=== PATIENT | male | born 1970 | race Caucasian/White ===

== ENCOUNTER 2019-09-04 11:19 | Emergency (ER) | payer BC ==
[2019-09-04 12:13] VITALS: BP 114/68
--- NOTE | 2019-09-04 12:38 | UC ---
Respiratory Complaint HPI - HPI Summary HPI Summary: 1. had a sty left upper eye lid that he poked at and then awake with red injected eye with clear drainage 2. 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 - History of Current Complaint Chief Complaint: UCRespiratory Stated Complaint: FEVER,CHILLS,EYE COMPLAINT Time Seen by Provider: 09/04/19 12:02 Hx Obtained From: Patient Onset/Duration: Gradual Onset, Lasting Days Timing: Constant Pain Intensity: 0 Character: Cough: Productive Aggravating Factors: Deep Breaths, Recumbent Position Alleviating Factors: Nothing Associated Signs And Symptoms: Positive: Fever, Pleuritic Chest Pain, URI, Nasal Congestion - Allergies/Home Medications Allergies/Adverse Reactions: Allergies Allergy/AdvReac Type Severity Reaction Status Date / Time environmental Allergy Congestion Uncoded 09/04/19 11:59 Home Medications: Home Medications Acetaminophen [Non-Aspirin] 650 mg PO DAILY PRN 09/04/19 [History Confirmed 01/18] Escitalopram * [Lexapro 10 mg (NF)] 10 mg PO DAILY 09/04/19 [History Confirmed 09/04/19] Fluticasone NASAL SPRAY 50MCG* [Flonase NASAL SPRAY 50MCG*] 1 spray BOTH NARES DAILY 09/04/19 [History Confirmed 09/04/19] PMH/Surg Hx/FS Hx/Imm Hx Previously Healthy: No Respiratory History: Asthma - Surgical History Surgical History: Yes Surgery Procedure, Year, and Place: facial cysts - Family History Known Family History: Positive: None - Social History Lives: With Family Alcohol Use: Occasionally Substance Use Type: None Smoking Status (MU): Former Smoker Review of Systems All Other Systems Reviewed And Are Negative: Yes Constitutional: Positive: Fever, Chills, Fatigue Skin: Positive: Negative Eyes: Positive: Drainage, Eye Redness ENT: Positive: Sore Throat, Ear Ache, Nasal Discharge, Sinus Congestion Respiratory: Positive: Cough Cardiovascular: Positive: Negative Gastrointestinal: Positive: Negative Genitourinary: Positive: Negative Motor: Positive: Negative Neurovascular: Positive: Negative Musculoskeletal: Positive: Negative Neurological: Positive: Negative Psychological: Positive: Negative Is Patient Immunocompromised?: No Physical Exam Triage Information Reviewed: Yes Appearance: Well-Appearing, No Pain Distress, Well-Nourished Vital Signs: Initial Vital Signs Temp 99.9 F 09/04/19 12:03 Pulse 80 09/04/19 12:03 Resp 18 09/04/19 12:03 BP 114/68 09/04/19 12:03 Pulse Ox 98 09/04/19 12:03 Vital Signs Reviewed: Yes Eye Exam: Normal Eyes: Positive: Conjunctiva Clear - r, Conjunctiva Inflamed - l, Discharge - l ENT Exam: Normal ENT: Positive: Normal ENT inspection, Hearing grossly normal, Pharynx normal, Pharyngeal erythema, TMs normal, Sinus tenderness, Uvula midline. Negative: Nasal congestion, Tonsillar swelling, Trismus, Muffled voice, Hoarse voice, Dental tenderness Dental Exam: Normal Neck exam: Normal Neck: Positive: Supple, Nontender, No Lymphadenopathy Respiratory Exam: Normal Respiratory: Positive: Chest non-tender, Lungs clear, Normal breath sounds, No respiratory distress, No accessory muscle use Cardiovascular Exam: Normal Cardiovascular: Positive: RRR, No Murmur, Pulses Normal, Brisk Capillary Refill Musculoskeletal Exam: Normal Musculoskeletal: Positive: Strength Intact, ROM Intact, No Edema Neurological Exam: Normal Neurological: Positive: Alert, Muscle Tone Normal Psychological Exam: Normal Skin Exam: Normal Respiratory Course/Dx - Course Course Of Treatment: cipro eye drops as he has already tried his son e-mycin drops with out effect, Amoxicill and continue with inhalers for bronchitis/ sinusitis follow with pcp prn - Differential Dx/Diagnosis Provider Diagnosis: Acute bacterial conjunctivitis of left eye, Bronchitis Discharge ED - Sign-Out/Discharge Documenting (check all that apply): Patient Departure All imaging exams completed and their final reports reviewed: No Studies - Discharge Plan Condition: Stable Disposition: HOME Prescriptions: Amoxicillin PO (*) [Amoxicillin 875 MG (*)] 875 mg PO BID #20 tab Ciprofloxacin 0.3% OPTH.EFRAÍN* [Cipro 0.3% Opth*] 1 drop LEFT EYE Q2H #1 btl Patient Education Materials: Acute Bronchitis (ED), Conjunctivitis (ED), Warm Compress or Soak (ED) Referrals: Essence Cardenas MD [Primary Care Provider] - If Needed - Billing Disposition and Condition Condition: STABLE Disposition: Home
== END 2019-09-04 12:49 | disposition home or self-care (01) ==
LOC: UCCORT 11:19
DX: H10.32 Unspecified acute conjunctivitis, left eye (principal); B96.89 Other specified bacterial agents as the cause of diseases classified elsewhere; J45.909 Unspecified asthma, uncomplicated; J34.89 Other specified disorders of nose and nasal sinuses; R53.83 Other fatigue; Z87.891 Personal history of nicotine dependence; Z79.51 Long term (current) use of inhaled steroids; Z91.09 Other allergy status, other than to drugs and biological substances
CPT/HCPCS: 99202; G0463